=== PATIENT | female | born 1975 | race Caucasian/White ===

== ENCOUNTER 2016-12-24 12:00 | Emergency (ER) | payer OTHER ==
[2016-12-24 12:17] VITALS: BP 115/75; PULSE 86; RESP 20; TEMP 98.1; O2SAT 98
--- NOTE | 2016-12-24 12:58 | UCPHY ---
H & P Time Seen by Provider: 12/24/16 12:25 Patient Type: Established HPI/ROS: HPI Right hand injury. 41-year-old female by private vehicle. Reports she tripped and fell on an outstretched right hand. Complains of pain to the ulnar aspect of the right hand and 5th digit. No other injury or complaint. She is left-hand dominant. She did not hit her head. ROS: Constitutional: No fever, no chills. No weakness. Eyes: No discharge. No changes in vision. Respiratory: No cough. No shortness of breath. Cardiac: No chest pain, no palpitations. Gastrointestinal: No abdominal pain, no vomiting, no diarrhea. Musculoskeletal: No back pain. No neck pain. No extremity pain other than noted. Skin: No rashes. Neurological: No headache. No focal weakness or altered sensation. Past medical history: PTSD, bipolar, anxiety, hypertension. Social history: Nonsmoker. Here by herself. Physical Exam: General Appearance: Alert, no distress. This patient is responding to questions appropriately and in full sentences. This patient appears well- hydrated and well-nourished. Eyes: Pupils equal and round no pallor or injection. No lid edema, erythema or injection. Right hand and wrist exam: She has some mild tenderness on palpation over the ulnar aspect of the 5th metacarpal, metacarpophalangeal joint and proximal 5th phalanx. There is no swelling, ecchymosis, warmth, erythema to these areas. The skin is intact. There is no pain elicited to the 5th digit on axial compression of the 5th digit. No snuffbox tenderness, no pain on axial compression of digits 1 through 4. The other bony aspects of the hand are normal on exam. The right hand is neurovascularly intact. Neurological: Motor sensory function is grossly intact. Cranial nerves are normal. Gait is normal. Skin: Warm and dry, no rashes. No lacerations or abrasions. Extremities are symmetrical. All joints range without pain or impingement. Psychiatric: No agitation. No depression. Database: EKG: Imaging: Right hand x-ray series: Negative for fracture, subluxation, dislocation. Interpreted by me. Procedures: Emergency department course: X-ray results reviewed with the patient. She was placed in a Velcro hand and wrist splint for comfort. She has been instructed to follow up with her primary care physician for re-evaluation of the hand and orthopedic consultation as needed in 2-3 days. Return to Urgent Care precautions reviewed with her. All of her questions were answered. She was discharged in good condition. Differential Diagnosis: The differential diagnosis on this patient includes but is not limited to right hand sprain. Fracture, subluxation, dislocation involving the right hand unlikely. This represents a partial list of diagnoses considered. These considerations are based on history, physical exam, past history, reassessment and diagnostic testing. Smoking Status: Never smoked Constitutional: Initial Vital Signs Temperature (C) 36.7 C 12/24/16 12:13 Heart Rate 86 12/24/16 12:13 Respiratory Rate 20 12/24/16 12:13 Blood Pressure 115/75 12/24/16 12:13 O2 Sat (%) 98 12/24/16 12:13 O2 Delivery Mode Room Air Allergies/Adverse Reactions: codeine Allergy (Verified 12/24/16 12:11) Penicillins Allergy (Verified 12/24/16 12:11) sertraline HCl [From Zoloft] Allergy (Verified 12/24/16 12:11) Home Medications: Medication Instructions Recorded Atorvastatin Calcium 12/24/16 Levothyroxine 12/24/16 Lisinopril 12/24/16 [place] Carbonate 12/24/16 Paxil 12/24/16 Seroquel 12/24/16 Departure - Departure Disposition: Home, Routine, Self-Care Clinical Impression: Sprain of right hand Condition: Good Instructions: Hand Sprain (ED) Additional Instructions: Read and follow provided instructions. Follow-up with your primary care physician in 2-3 days for re-evaluation and orthopedic referral as needed. Ibuprofen dosin mg every 6 hours with meals for the next 3 days only. Return to the emergency department for worsening pain, discoloration, loss of sensation or weakness or other serious concerns. Referrals: SHAN ALBARRAN [Other] - As per Instructions - PQRS PQRS Measurement: Not applicable.
== END 2016-12-24 13:09 | disposition home or self-care (01) ==
LOC: CED 12:00
DX: S63.91XA Sprain of unspecified part of right wrist and hand, initial encounter (principal); I10 Essential (primary) hypertension; W19.XXXA Unspecified fall, initial encounter
CPT/HCPCS: 73130; G0463